=== PATIENT | male | born 1950 | race Caucasian/White ===

== ENCOUNTER 2021-01-02 02:48 | Inpatient (IN) | payer MEDICARE, OTHER ==
[~2021-01-02] VITALS: Ht 167 cm; Wt 70.0 kg
[2021-01-02] VITALS (13 sets, daily range): BP systolic 111–150; BP diastolic 55–83
[2021-01-02] MEDS ORDERED: ACETAMINOPHEN 325 MG TABLET PO PRN (05:15)
[2021-01-02] MEDS: inSUlin ASPART (NovoLOG) 1 UNIT/0.01 ML (CHARGE PER UNIT) SC SCH ×4 (06:34→20:48)
[2021-01-02 07:22] LABS: BASOPHILS % (AUTO) 0 % (0-10); EOSINOPHILS % (AUTO) 0 % (0-10); HEMATOCRIT 34 % (40-54); HEMOGLOBIN 11.8 g/dL (13.3-17.7); LYMPHOCYTES # (AUTO) 0.7 10^3/uL (1.0-4.0); LYMPHOCYTES % (AUTO) 17 % (12-44); MEAN CORPUSCULAR HEMOGLOBIN 29 pg (25-34); MEAN CORPUSCULAR HGB CONC 34 g/dL (32-36); MEAN CORPUSCULAR VOLUME 85 fL (80-99); MEAN PLATELET VOLUME 8.9 fL (9.0-12.2); MONOCYTES # (AUTO) 0.2 10^3/uL (0.0-1.0); MONOCYTES % (AUTO) 4 % (0-12); NEUTROPHILS # (AUTO) 3.2 10^3/uL (1.8-7.8); NEUTROPHILS % (AUTO) 78 % (42-75); PLATELET COUNT 206 10^3/uL (130-400)
[2021-01-02 07:34] LABS: ALBUMIN 3.2 GM/DL (3.2-4.5); POTASSIUM 3.2 MMOL/L (3.6-5.0)
[2021-01-02 07:35] LABS: CALCIUM 8.2 MG/DL (8.5-10.1)
[2021-01-02 07:36] LABS: TOTAL PROTEIN 6.3 GM/DL (6.4-8.2)
[2021-01-02 07:38] LABS: BILIRUBIN,TOTAL 0.8 MG/DL (0.1-1.0)
[2021-01-02 07:40] LABS: CREATININE SERUM 0.72 MG/DL (0.60-1.30)
[2021-01-02] MEDS: ENOXAPARIN 40 MG/0.4 ML (LOVENOX) SYR SC SCH (08:04)
[2021-01-02] MEDS: meTOprolol SUCCINATE 100 MG (TOPROL XL) TAB PO SCH ×2 (08:04→20:16)
[2021-01-02] MEDS: ASPIRIN 81 MG CHEW (CHILDREN'S ASA) PO SCH (08:04)
--- NOTE | 2021-01-02 09:13 | History & Physical-Hospitalist ---
History of Present Illness HPI/Chief Complaint Pt is a 70yoCM with a PMH of HTN and NIDDMII who presented to the ER due to weakness. He was not very forthcoming with his answer so history is somewhat limited by that. He states that he was diagnosed with COVID on 12/30. He is unvaccinated against COVID. He believes his symptoms started then as well but was unable to tell me what symptoms he had other than "COVID symptoms." He denied Cough or SOB though was coughing in the room while I was there. He denied nausea, vomiting, diarrhea, loss of taste or smell, or chest pain. He presented to the ER because he was weak and having falls. He was incidentally found to have an elevated troponin at 1.27 at [facility] in [place]. He was transferr ed here for further management. Source: patient Date Seen 01/02/21 Time Seen by a Provider: 09:06 Attending Physician Raoul Gould MD PCP Unknown Referring Physician Date of Admission Jan 02, 2021 at 04:30 Home Medications & Allergies Home Medications Reviewed patient Home Medication Reconciliation performed by pharmacy medication reconciliations substation maintenance technician and/or nursing. Patients Allergies have been reviewed. Allergies Allergies Coded Allergies No Known Drug Allergies (Unverified01/02/21) Past Tnaucyf-Ajqvfy-Fwmnsu Hx Current Status Communicates: Verbally Primary Language: Irish Preferred Spoken Language: Irish Is interpretation needed?: No Review of Systems Constitutional: No chills, No fever; malaise, weakness EENTM: no symptoms reported Respiratory: see HPI Cardiovascular: No chest pain, No edema, No Hx of Intervention, No palpitations Gastrointestinal: No abdominal pain, No constipation, No diarrhea, No loss of appetite, No nausea, No vomiting Genitourinary: no symptoms reported Musculoskeletal: no symptoms reported Skin: no symptoms reported Psychiatric/Neurological: No Symptoms Reported Physical Exam Physical Exam Vital Signs Vital Signs - First Documented 01/02/21 01/03/21 04:43 08:00 Temp 36.9 Pulse 85 Resp 24 B/P (MAP) 148/80 (102) Pulse Ox 96 O2 Delivery Nasal Cannula O2 Flow Rate 2.00 FiO2 65 Capillary Refill : Height, Weight, BMI Height: '" Weight: lbs. oz. kg; 25.09 BMI Method: General Appearance: No Apparent Distress, WD/WN HEENT: PERRL/EOMI, Moist Mucous Membranes; No Scleral Icterus (L), No Scleral Icterus (R) Neck: Normal Inspection, Supple Respiratory: Lungs Clear, No Respiratory Distress Cardiovascular: Regular Rate, Rhythm, No Murmur Gastrointestinal: Normal Bowel Sounds, Non Tender, Soft Extremity: Normal Capillary Refill, No Calf Tenderness, No Pedal Edema Neurologic/Psychiatric: Alert, Oriented x3, Normal Mood/Affect Skin: Normal Color, Warm/Dry Results Results/Procedures Labs Laboratory Tests 01/04/21 03:10 01/05/21 03:47 Patient resulted labs reviewed. Assessment/Plan Admission Diagnosis Acute hypoxic respiratory failure due to COVID19 NSTEMI Admission Status: Inpatient Order (span 2 midnights) Reason for Inpatient Admission: see below Assessment and Plan Acute hypoxic respiratory failure due to COVID19 On day 4 of symptoms Hypoxic on 3lpm Start remdesivir Start decadron MAT protocol IS Lovenox Will get CXR and procal NSTEMI HTN Cardiology consulted, appreciate recs Troponin 1.27 at [place] and 0.763 here this morning NIDDMII Did not disclose this diagnosis but on glimepiride at home and previously metforming SSI DVT ppx: Lovenox Diagnosis/Problems Diagnosis/Problems (1) Acute respiratory failure (2) COVID-19 (3) Essential (primary) hypertension (4) Non-insulin dependent type 2 diabetes mellitus (5) NSTEMI (non-ST elevated myocardial infarction) WILIAM AVELAR MD Jan 02, 2021 09:13
[2021-01-02] MEDS ORDERED: REMDESIVIR INJ 200 MG in NS (IVPB) 210 ML IV ONE (09:15)
--- NOTE | 2021-01-02 10:30 | Diagnostic Imaging Report ---
INDICATION: Hypoxia and Covid 19 positive. TIME OF EXAM: 9:43 AM. COMPARISON: No prior studies are available for comparison. FINDINGS: The heart size is normal. There appears to be some mild infiltrate in the left perihilar region. The right lung appears fairly clear. There is no effusion or pneumothorax. IMPRESSION: Mild left perihilar pneumonia. The report was faxed to Infection Control by [email or web address]@10:29 AM. Dictated by: Dictated on workstation # [id number]
[2021-01-02] MEDS: dexAMETHasone 6 MG TAB (DECADRON) PO SCH (10:43)
[2021-01-02] MEDS ORDERED: METO100T12 PO (10:48)
[2021-01-02] MEDS ORDERED: GLIM4TAB5 PO (10:48)
[2021-01-02] MEDS ORDERED: ASCO500T17 PO (10:48)
--- NOTE | 2021-01-02 10:58 | Consultation-Cardiology ---
HPI-Cardiology Cardiology Consultation Date of Consultation 01/02/21 Date of Admission Time Seen by Provider: 09:06 Indication: Elevated troponin HPI Patient is a 70 y/o male with history of HTN, DM. Diagnosed with COVID on 12/30/20. Reports fatigue and fever for the past 3-4 days, c/o increased fatigue, denies any cough of shortness of breath, although noted to have cough while i nterviewing patient. Workup done at [facility] showed elevated troponin of 1. Denies any chest pain, dizziness or lightheadedness. Denies any history of CAD. Home Medications & Allergies Allergies: Coded Allergies: No Known Drug Allergies (Unverified , 01/02/21) Home Medication List Reviewed: Yes KFT-Fltutm-Zoyade Hx Past Medical History Discussed below Family Medical History Family Medical Hx Noncontributory Review of Systems-General Review of Systems Constitutional: see HPI; No chills, No fever; malaise, weakness EENTM: see HPI, no symptoms reported Respiratory: see HPI, dyspnea on exertion, short of breath Cardiovascular: see HPI; No chest pain, No edema, No Hx of Intervention, No palpitations Gastrointestinal: no symptoms reported, see HPI; No abdominal pain, No constipation, No diarrhea, No loss of appetite, No nausea, No vomiting Genitourinary: no symptoms reported, see HPI Musculoskeletal: no symptoms reported, see HPI Skin: no symptoms reported, see HPI Psychiatric/Neurological: No Symptoms Reported, See HPI Reviewed Test Results Reviewed Test Results Lab Laboratory Tests 01/02/21 06:15: Glucometer 146H 01/02/21 07:03: White Blood Count 4.0L, Red Blood Count 4.03L, Hemoglobin 11.8L, Hematocrit 34L, Mean Corpuscular Volume 85, Mean Corpuscular Hemoglobin 29, Mean Corpuscular Hemoglobin Concent 34, Red Cell Distribution Width 12.4, Platelet Count 206, Mean Platelet Volume 8.9L, Immature Granulocyte % (Auto) 0, Neutrophils (%) (Auto) 78H, Lymphocytes (%) (Auto) 17, Monocytes (%) (Auto) 4, Eosinophils (%) (Auto) 0, Basophils (%) (Auto) 0, Neutrophils # (Auto) 3.2, Lymphocytes # (Auto) 0.7L, Monocytes # (Auto) 0.2, Eosinophils # (Auto) 0.0, Basophils # (Auto) 0.0, Immature Granulocyte # (Auto) 0.0, Sodium Level 136, Potassium Level 3.2L, Chloride Level 96L, Carbon Dioxide Level 27, Anion Gap 13, Blood Urea Nitrogen 16, Creatinine 0.72, Estimat Glomerular Filtration Rate 107, BUN/Creatinine Ratio 22, Glucose Level 141H, Calcium Level 8.2L, Corrected Calcium 8.8, Total Bilirubin 0.8, Aspartate Amino Transf (AST/SGOT) 38H, Alanine Aminotransferase (ALT/SGPT) 22, Alkaline Phosphatase 123, Troponin I 0.763*H, B-Type Natriuretic Peptide 174.1H, Total Protein 6.3L, Albumin 3.2, Procalcitonin 0.12H 01/02/21 10:12: Glucometer 151H ECG Impression ECG Initial ECG Rhythm: Normal Sinus Physical Exam Physical Exam Vital Signs Vital Signs - First Documented 01/02/21 04:43 Temp 36.9 Pulse 85 Resp 24 B/P (MAP) 148/80 (102) Pulse Ox 96 O2 Delivery Nasal Cannula O2 Flow Rate 2.00 Capillary Refill : Height, Weight, BMI Height: '" Weight: lbs. oz. kg; 25.09 BMI Method: General Appearance: No Apparent Distress, WD/WN HEENT: PERRL/EOMI, Moist Mucous Membranes; No Scleral Icterus (L), No Scleral Icterus (R) Neck: Normal Inspection, Supple Respiratory: Lungs Clear, No Respiratory Distress Cardiovascular: Regular Rate, Rhythm, No Murmur Gastrointestinal: Normal Bowel Sounds, Non Tender, Soft Extremity: Normal Capillary Refill, No Calf Tenderness, No Pedal Edema Neurologic/Psychiatric: Alert, Oriented x3, Normal Mood/Affect Skin: Normal Color, Warm/Dry A/P-Cardiology Admission Diagnosis COVID-19 Acute respiratory failure Elevated troponin HTN DM Assessment/Plan Acute respiratory failure d/t COVID 19, currently on O2 supplement NSTEMI, likely type II d/t hypoxemia, EKG showing no acute ST changes. Initial troponin done at [facility], repeat troponin 0.7. Denies any chest pain, will continue to monitor. HTN, restarted home blood pressure medication, continue to monitor. DM, management per medical services. Thank you for allowing us to participate in the management of Mr. Mejias. This is Ashlie Bowen PA-C, as a scribe for Dr. Astorga. Patient was seen and evaluated, management plan discussed, I reviewed the note and made correction using italic font To limit the exposure to COVID-19 and spreading of COVID-19, patient was seen with Ashlie and findings were relayed to me. Patient was admitted with generalized weakness and loss of energy, denied any chest pain, no acute EKG changes, had mild elevation in troponin Probably type II myocardial infarction Started on aspirin and Lovenox Monitor trending EKG was done today and did not show any acute abnormality suggestive of ischemia Patient has multiple risk factors including hypertension, hyperlipidemia and diabetes mellitus. We will continue monitoring closely ASHLIE GALINDO Jan 02, 2021 10:58 GIOVANNI ASTORGA MD Jan 02, 2021 15:40
--- OUTSIDE RECORDS SUMMARY | 2021-01-02 18:57 | XMS REPORT ---
Author Carlos Marti [facility] Address [address] [place], [place] [address] Care Team Providers Care Floor Layer Tile Name Role Phone Rupal Sneed PCP Rupal Sneed PreferredProvider Allergies and Adverse Reactions Name Reaction Notes No known allergies Plan of Treatment Not available. Medications Active Name Start Date Estimated Completion Date SIG Co mments Alcohol Prep Pads topical pads, medicated 07/19/2020 024 use twice daily prior to checking finger blood glucose metoprolol tartrate 100 mg tablet 11/13/2020 11/08/2021 TAKE 1 TABLET BY MOUTH DAILY glimepiride 4 mg tablet 12/05/2020 04/04/2021 ... TAKE 1 TABLET BY MOUTH DAILY ... Name Start Date Expiration Date SIG Comments sildenafil 25 mg oral tablet 01/23/2020 05/22/2020 gideon e 1 to 4 tabs by oral route once daily as needed approximately 1 hour before sexual activity metformin 500 mg oral tablet extended release 24 hr 07/19/2020 11/16/2020 take 1 tablet (500 mg) by oral route once daily with breakfast Problem List Description Status Onset Hypertension Active Essential hypertension Active 07/18/2020 Erectile dysfunction Active 07/18/2020 Right carpal tunnel syndrome Active 07/18/2020 Osteoarthritis Active 07/18/2020 Macular degeneration Active 07/18/2020 Peripheral neuropathy Active 07/18/2020 Diabetes mellitus type II, controlled, with no complications Active 07/19/2020 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 Visual disturbance Active 11/07/2020 Vital Signs Date Time BP-Sys(mm[Hg] BP-Chika(mm[Hg]) HR(bpm) RR(rpm) Temp WT HT HC BMI BSA BMI Percentile O2 Sat(%) 10/25/2020 9:17:00 AM 130 mm[Hg] 90 mm[Hg] 65 {beats}/min 18 rpm 97.9 F 159 lbs 66 in 25.663 kg/m2 1.8326 m2 98 % 08/10/2020 8:51:00 AM 122 mm[Hg] 70 mm[Hg] 64 {beats}/min 18 rpm 97.2 F 156.312 lbs 66 in 25.23 kg/m2 1.82 m2 99 % 07/19/2020 9:00:00 AM 148 mm[Hg] 78 mm[Hg] 66 {beats}/min 18 rpm 97.7 F 153 lbs 66 in 24.6946 kg/m2 1.7977 m2 98 % 07/17/2020 9:23:00 AM 160 mm[Hg] 80 mm[Hg] 71 {beats}/min 18 rpm 97.7 F 153 lbs 66 in 24.69 kg/m2 1.80 m2 98 % 01/23/2020 11:15:00 AM 120 mm[Hg] 72 mm[Hg] 73 {beats}/min 18 rpm 98.1 F 156.312 lbs 66 in 25.2292 kg/m2 1.8171 m2 97 % Social History Name Description Comments Tobacco Never smoker 07/17/2020 - 2019 - History of Procedures Date Ordered Description Order Status 02/01/2020 12:00 AM NRV CNDJ TEST 13/> STUDIES Reviewed 02/01/2020 12:00 AM MUSC TEST DONE W/N TEST COMP Reviewed 07/17/2020 12:00 AM COMPLETE CBC W/AUTO DIFF WBC Reviewed 07/17/2020 12:00 AM COMPREHEN METABOLIC PANEL Reviewed 07/17/2020 12:00 AM LIPID PANEL Reviewed 07/17/2020 12:00 AM GLYCOSYLATED HEMOGLOBIN TEST Reviewed 07/17/2020 12:00 AM PSA (Screening) Reviewed 07/17/2020 12:00 AM URINALYSIS AUTO W/SCOPE Reviewed 07/17/2020 12:00 AM COLLECTION VENOUS BLOOD VENIPUNCTURE Rev iewed 07/18/2020 12:00 AM Foot examination performed ( includes examination through visual inspection, sensory exam with monofilament, and pulse exam - report when all of the 3 components are completed) Reviewed 07/18/2020 8:46 AM SCREEN DEPRESSION PERFORMED Reviewed 07/18/2020 8:46 AM FALL RISK ASSESSMENT DOCD Reviewed 07/19/2020 10:26 AM ASSAY GLUCOSE BLOOD QUANT Reviewed 07/19/2020 10:26 AM GLUCOSE BLOOD TEST Reviewed 07/20/2020 12:00 AM Diabetic Education Consult Reviewed 08/10/2020 12:00 AM COMPREHEN METABOLIC PANEL Reviewed 08/10/2020 12:00 AM COLLECTION VENOUS BLOOD VENIPUNCTURE Rev iewed 10/25/2020 12:00 AM COLLECTION VENOUS BLOOD VENIPUNCTURE Rev iewed 10/25/2020 12:00 AM COMPREHEN METABOLIC PANEL Reviewed 10/25/2020 12:00 AM GLYCOSYLATED HEMOGLOBIN TEST Reviewed Results Summary Date and Description Results 07/17/2020 10:17 AM WBC 5.8 RBC 5.00 HGB 14.90 g /dLHCT 42.30 %MCV 85.0 fLMCH 29.80 pgMCHC 35.20 g/dLRDW SD 36 %RDW CV 11.90 %MPV 10.30 fLPLT 213 x10E3/uLNRBC# 0.00 NRBC% 0.0 %NEUT 63.6 %LYMP 26.6 %MONO 6.0 %EOS 2.6 %BASO 1.0 #NEUT 3.69 #LYMP 1.54 #MONO 0.35 #EOS 0.15 #BASO 0.06 MANUAL DIFF NOT IND COLOR Light-Yellow CLARITY Clear SPEC GRAV >1.030 pH 6.0 PROTEIN Negative GLUCOSE >1000 KETONE Negative BILIRUBIN Negative BLOOD Negative NITRITE Negative LEUK SCREEN Negative RBC/HPF 0-3 WBC/HPF None Seen BACTERIA/HPF None Seen SQUAMOUS EPI/LPF None Seen CULT SET UP? NO PSA TOTAL 0.750 ng/mLTRIGLYCERIDES 203 CHOLESTEROL 215.0 mg/dLHDL 50 TOT CHOL/HDL 4.3 LDL (CALC) 124 HGB A1C 11.50 %Est Avg Glucose 283.4 GLUCOSE 426 SODIUM 132 POTASSIUM 4.6 CHLORIDE 93.0 mmol/LCO2 29 BUN 17.0 mg/dLCREATININE 0.60 mg/dLSGOT/AST 25 SGPT/ALT 21 ALK PHOS 216 TOTAL PROTEIN 7.5 ALBUMIN 4.4 TOTAL BILI 0.6 CALCIUM 9.80 mg/dLAGE 70 GFR NonAA 132 GFR AA 160 eGFR 132 mL/min/1.73meGFR AA* >60 mL/min/1.73m 07/18/2020 8:46 AM During the past month, have you been feeling depressed? No During the past month, have you lost interest in usual activity? No Falls in last 6 months? No Unsteady or worry about falling? No Fall Risk Assessment Not At Risk 07/19/2020 10:26 AM Glucose SerPl-mCnc 236.0 mg/ dL 08/10/2020 9:25 AM GLUCOSE 158 SODIUM 136 POTAS SIUM 4.0 CHLORIDE 102.0 mmol/LCO2 28 BUN 10.0 mg/dLCREATININE 0.60 mg/dLSGOT/AST 22 SGPT/ALT 17 ALK PHOS 122 TOTAL PROTEIN 6.7 ALBUMIN 3.8 TOTAL BILI 0.4 CALCIUM 9.0 mg/dLAGE 70 GFR NonAA 132 GFR AA 160 eGFR 132 mL/min/1.73meGFR AA* >60 mL/min/1.73m 10/25/2020 10:34 AM GLUCOSE 177 SODIUM 135 POTAS SIUM 4.1 CHLORIDE 101.0 mmol/LCO2 27 BUN 16.0 mg/dLCREATININE 0.70 mg/dLSGOT/AST 25 SGPT/ALT 21 ALK PHOS 161 TOTAL PROTEIN 7.1 ALBUMIN 4.2 TOTAL BILI 0.4 CALCIUM 9.30 mg/dLAGE 70 GFR NonAA 111 GFR AA 135 eGFR 111 mL/min/1.73meGFR AA* >60 mL/min/1.73mHGB A1C 7.0 %Est Avg Glucose 154.2 History Of Immunizations Not available. 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/07/2020 Visual disturbance 11/07/2020 Moderate Right Finger numbness Jan 23 2020 11:20AM Hypertension Jan 23 2020 11:20AM Paresthesia of finger Jan 23 2020 11:20AM Erectile dysfunction Jan 23 2020 11:20AM Carpal tunnel syndrome of right wrist Sep 2019 8:32AM Ulnar neuropathy at elbow of right upper extremity Sep 01 12 20 8:32AM Essential hypertension Jul 17 2020 9:51AM Elevated glucose level Feb 2020 9:51AM Mixed hyperlipidemia Feb 2020 9:51AM Fatigue b 2020 9:51AM Dizziness b 2020 9:51AM Prostate cancer screening b 2020 9:51AM Urinary frequency Feb 2020 9:51AM Essential hypertension Feb 2020 9:28AM Peripheral neuropathy Feb 2020 9:28AM Macular degeneration Feb 2020 9:28AM Osteoarthritis b 2020 9:28AM Erectile dysfunction b 2020 9:28AM Right carpal tunnel syndrome Feb 2020 9:28AM Diabetes mellitus type II, controlled, with no complic ations b 2020 9:03AM Essential hypertension b 2020 9:03AM Macular degeneration b 2020 9:03AM Peripheral neuropathy b 2020 9:03AM Diabetes mellitus type II, controlled, with no complic ations Aug 10 2020 8:54AM Essential hypertension Aug 10 2020 8:54AM Peripheral neuropathy Aug 10 2020 8:54AM Diabetes mellitus type II, controlled, with no complic ations Oct 25 2020 10:27AM Essential hypertension Oct 25 2020 10:27AM Visual disturbance Oct 25 2020 9:20AM Diabetes mellitus type II, controlled, with no complic ations Oct 25 2020 9:20AM Essential hypertension Oct 25 2020 9:20AM Macular degeneration Oct 25 2020 9:20AM Victor Hugo Bonnet syndrome Oct 25 2020 9:20AM Payers Insurance Name Company Name Plan Name Plan Number Policy Number Steven cy Group Number Start Date [facility] [id number] AARP - Medicare Complete 9 [id number] N/A Government Personnel [employer] [id number] N/A Medicare Part B Medicare Of [place] [id number] N/A Medicare RHC Medicare RHC [id number] N/ A Medicare Part A Medicare - Lab/Xray [id number] N/A History of Encounters Visit Date Visit Type Provider 10/25/2020 Office visit Rupal Sneed APRN 08/10/2020 Office visit Rupal Sneed APRN 07/19/2020 Office visit Rupal Sneed [employer] 07/17/2020 Office visit Rupal Sneed [employer] 01/31/2020 Procedures Sebastián Vaughan DO 01/23/2020 Office visit Rupal Sneed [employer]
--- OUTSIDE RECORDS SUMMARY | 2021-01-02 18:57 | XMS REPORT ---
Author Carlos Marti [facility] Address [address] [place], [place] [address] Care Team Providers Care Glass Handler Name Role Phone Rupal Sneed PCP Rupal Sneed PreferredProvider Allergies and Adverse Reactions Name Reaction Notes No known allergies Plan of Treatment Not available. Medications Active Name Start Date Estimated Completion Date SIG Co mments metoprolol tartrate 100 mg oral tablet take 1 tablet (100 mg) by oral route once daily with a meal metformin 500 mg oral tablet extended release 24 hr 07/19/2020 11/16/2020 take 1 tablet (500 mg) by oral route once daily with breakfast glimepiride 4 mg oral tablet 07/19/2020 11/16/2020 gideon e 1 tablet (4 mg) by oral route once daily for 30 days Alcohol Prep Pads topical pads, medicated 07/19/2020 024 use twice daily prior to checking finger blood glucose Name Start Date Expiration Date SIG Comments sildenafil 25 mg oral tablet 01/23/2020 05/22/2020 gideon e 1 to 4 tabs by oral route once daily as needed approximately 1 hour before sexual activity Problem List Description Status Onset Hypertension Active [...] iewed 10/25/2020 12:00 AM COMPREHEN METABOLIC PANEL Returned 10/25/2020 12:00 AM GLYCOSYLATED HEMOGLOBIN TEST Returned Results Summary Date and Description Results 07/17/2020 [...] 160 eGFR 132 mL/min/1.73meGFR AA* >60 mL/min/1.73m History Of Immunizations Not available. History of [...] Sep 01 12 20 8:32AM Essential hypertension b 2020 9:51AM Elevated glucose level b 2020 9:51AM Mixed hyperlipidemia b 2020 9:51AM Fatigue b 2020 9:51AM Dizziness b 2020 9:51AM Prostate cancer screening b 2020 9:51AM Urinary frequency b 2020 9:51AM Essential hypertension b 2020 9:28AM Peripheral neuropathy b 2020 9:28AM Macular degeneration b 2020 9:28AM Osteoarthritis b 2020 9:28AM Erectile dysfunction b 2020 9:28AM Right carpal tunnel syndrome Jul 17 2020 9:28AM Diabetes mellitus type II, controlled, with no complic ations Jul 19 2020 9:03AM Essential hypertension Jul 19 2020 9:03AM Macular degeneration Jul 19 2020 9:03AM Peripheral neuropathy Jul 19 2020 9:03AM Diabetes mellitus type II, controlled, [...] Number Steven cy Group Number Start Date [facility] [id number] AARP - Medicare Complete 9 [id number] N/A Government Personnel [employer] [id number] N/A Medicare Part B Medicare Of [place] [id number] N/A Medicare RHC Medicare RHC [id number] N/ A Medicare Part A Medicare - Lab/Xray [id number] N/A History of Encounters Visit Date Visit Type Provider 10/25/2020 Office visit Rupal Sneed APRN 08/10/2020 Office visit Rupal Sneed APRN 07/19/2020 Office visit Rupal Sneed APRN 07/17/2020 Office visit Rupal Sneed APRN 01/31/2020 Procedures Sebastián Clement DO 01/23/2020 Office visit Rupal Sneed APRN
[2021-01-02] MEDS: RT-ALBUTEROL HFA 8.5 GM INHALER IH SCH (21:41)
[2021-01-03 03:47] VITALS: BP 115/62
[2021-01-03 04:51] LABS: HEMATOCRIT 35 % (40-54); HEMOGLOBIN 11.8 g/dL (13.3-17.7); MEAN CORPUSCULAR HEMOGLOBIN 29 pg (25-34); MEAN CORPUSCULAR HGB CONC 34 g/dL (32-36); MEAN CORPUSCULAR VOLUME 85 fL (80-99); MEAN PLATELET VOLUME 9.3 fL (9.0-12.2); PLATELET COUNT 221 10^3/uL (130-400); WHITE BLOOD COUNT 4.1 10^3/uL (4.3-11.0)
[2021-01-03 05:04] LABS: ALBUMIN 3.1 GM/DL (3.2-4.5)
[2021-01-03 05:05] LABS: POTASSIUM 3.5 MMOL/L (3.6-5.0)
[2021-01-03 05:06] LABS: CALCIUM 8.3 MG/DL (8.5-10.1)
[2021-01-03 05:07] LABS: TOTAL PROTEIN 6.2 GM/DL (6.4-8.2)
[2021-01-03 05:09] LABS: BILIRUBIN,TOTAL 0.6 MG/DL (0.1-1.0)
[2021-01-03 05:10] LABS: CREATININE SERUM 0.76 MG/DL (0.60-1.30)
[2021-01-03] MEDS: inSUlin ASPART (NovoLOG) 1 UNIT/0.01 ML (CHARGE PER UNIT) SC SCH ×4 (05:34→21:36)
[2021-01-03] MEDS: dexAMETHasone 6 MG TAB (DECADRON) PO SCH (05:34)
[2021-01-03] MEDS: RT-ALBUTEROL HFA 8.5 GM INHALER IH SCH ×2 (07:45→21:24)
[2021-01-03 07:56] VITALS: BP 124/71
--- NOTE | 2021-01-03 09:12 | Progress Note - Hospitalist ---
Subjective HPI/CC On Admission Date Seen by Provider: Jan 03, 2021 Time Seen by Provider: 09:01 Pt is a 70yoCM with a PMH of HTN and NIDDMII who presented to the ER due to weakness. He was not very forthcoming with his answer so history is somewhat limited by that. He states that he was diagnosed with COVID on 12/30. He is unvaccinated against COVID. He believes his symptoms started then as well but was unable to tell me what symptoms he had other than "COVID symptoms." He denied Cough or SOB though was coughing in the room while I was there. He denied nausea, vomiting, diarrhea, loss of taste or smell, or chest pain. He presented to the ER because he was weak and having falls. He was incidentally found to have an elevated troponin at 1.27 at [facility] in [place]. He was transferred here for further management. Subjective/Events-last exam Pt reports feeling well and denies any dyspnea. Despite this escalated to Vapotherm overnight. Objective Exam Vital Signs Vital Signs Date Time Temp Pulse Resp B/P (MAP) Pulse Ox O2 Delivery O2 Flow Rate FiO2 01/03/21 07:56 36.9 62 22 124/71 (88) 99 Vapotherm 25.00 65.00 Capillary Refill : General Appearance: No Apparent Distress, WD/WN Respiratory: No Accessory Muscle Use, Decreased Breath Sounds, Other (on Vapot herm, denies any d yspnea but when asked to take a deep breath he did not attempt and instead had very shallow respirations) Cardiovascular: Regular Rate, Rhythm, No Murmur Gastrointestinal: Normal Bowel Sounds, Soft Neurologic/Psychiatric: Alert, Oriented x3 Results/Procedures Lab Laboratory Tests 01/03/21 04:35 Patient resulted labs reviewed. Assessment/Plan Assessment and Plan Assess & Plan/Chief Complaint Acute hypoxic respiratory failure due to COVID19 Symptom onset 12/30 Worsening respiratory failure as is now on Vapotherm Discussed natural course of illness with pt and that he likely would get worse before he got better, he expressed understanding DC remdesivir, will give Actemra Decadron MAT protocol IS Lovenox Procal low- no indication for abx NSTEMI HTN Cardiology consulted, appreciate recs Troponin 1.27 at [place] and 0.763 here this morning Repeats per Dr Gauri ELISE Did not disclose this diagnosis but on glimepiride at home and previously metforming SSI BS 245 fasting today Will add Levemir- though likely from steroids DVT ppx: Lovenox Diagnosis/Problems Diagnosis/Problems (1) Acute respiratory failure (2) COVID-19 (3) Essential (primary) hypertension (4) Non-insulin dependent type 2 diabetes mellitus (5) NSTEMI (non-ST elevated myocardial infarction) WILIAM AVELAR MD Jan 03, 2021 09:12
[2021-01-03] MEDS ORDERED: REMDESIVIR INJ 100 MG in NS (IVPB) 230 ML IV SCH (09:15)
[2021-01-03] MEDS: meTOprolol SUCCINATE 100 MG (TOPROL XL) TAB PO SCH ×2 (09:23→21:36)
[2021-01-03] MEDS: ASPIRIN 81 MG CHEW (CHILDREN'S ASA) PO SCH (09:23)
[2021-01-03] MEDS: ENOXAPARIN 40 MG/0.4 ML (LOVENOX) SYR SC SCH (09:23)
--- NOTE | 2021-01-03 10:08 | Pulmonary Consultation ---
History of Present Illness History of Present Illness Date Seen by Provider: Jan 03, 2021 Time Seen by Provider: 10:00 Date of Admission Reason for Visit: Elevated troponin History of Present Illness 70yoCM with a PMH of HTN and NIDDMII who presented to the ER due to weakness. SOB nad cough were documented. He states that he was diagnosed with COVID on 12/30. He is unvaccinated against COVID. He denied nausea, vomiting, diarrhea, loss of taste or smell, or chest pain. He presented to the ER because he was weak and having falls. He was incidentally found to have an elevated troponin at 1.27 at an outside hp; pt was started on COVID protocol and admitted to the step down; he advanced to vapotherm. 88% on ra Allergies and Home Medications Allergies Coded Allergies: No Known Drug Allergies (Unverified , 01/02/21) Home Medications Ascorbic Acid 500 Mg Tablet, 500 MG PO DAILY, (Reported) Glimepiride 4 Mg Tablet, 4 MG PO DAILY, (Reported) Metoprolol Tartrate 100 Mg Tablet, 100 MG PO DAILY, (Reported) Past Medical/Social/Family Hx Patient Social History Employed/Student: retired Current Status Communicates: Verbally Primary Language: [place] Citizen Preferred Spoken Language: [place] Citizen Is interpretation needed?: No Past Medical History HTN DM Review of Systems Constitutional: see HPI Sepsis Event Evaluation Height, Weight, BMI Height: '" Weight: lbs. oz. kg; 25.09 BMI Method: Exam Exam Patient acknowledged, consented, and participated in this virtual visit which was conducted using real time audio/video Vital Signs Date Time Temp Pulse Resp B/P (MAP) Pulse Ox O2 Delivery O2 Flow Rate FiO2 01/03/21 08:00 98 Vapotherm 25.00 01/03/21 07:56 36.9 62 22 124/71 (88) 99 Vapotherm 25.00 65.00 01/03/21 07:46 90 Nasal Cannula 12.00 01/03/21 07:00 63 01/03/21 03:47 59 14 115/62 (79) 93 Nasal Cannula 7.00 01/03/21 03:24 92 High Flow N/C 9.00 01/03/21 01:00 62 01/03/21 00:00 High Flow N/C 7.00 01/02/21 23:52 36.6 62 26 119/76 (90) 94 Nasal Cannula 7.00 01/02/21 21:41 95 Nasal Cannula 3.00 01/02/21 20:34 High Flow N/C 7.00 01/02/21 20:03 36.0 61 20 137/79 (98) 95 Nasal Cannula 7.00 01/02/21 19:00 61 01/02/21 16:04 36.0 73 22 111/67 (82) 94 Nasal Cannula 7.00 01/02/21 16:00 96 High Flow N/C 7.00 01/02/21 13:25 37.9 81 93 01/02/21 12:56 82 01/02/21 12:00 93 Nasal Cannula 5.00 01/02/21 11:33 37.9 81 18 150/83 (105) 95 Nasal Cannula 5.00 I & O 01/03/21 07:00 Intake Total 1150 ml Output Total 1150 ml Balance 0 ml Height & Weight Height: '" Weight: lbs. oz. kg; 25.09 BMI Method: General Appearance: No Apparent Distress, WD/WN, Mild Distress HEENT: PERRL/EOMI, Moist Mucous Membranes; No Scleral Icterus (L), No Scleral Icterus (R) Neck: Normal Inspection, Supple Respiratory: No Accessory Muscle Use, Decreased Breath Sounds, Rhonci, Other (on Vapotherm, denies any d yspnea but when asked to take a deep breath he did not attempt and instead had very shallow respirations) Cardiovascular: Regular Rate, Rhythm, No Murmur Extremity: Normal Capillary Refill, No Calf Tenderness, No Pedal Edema Neurologic/Psychiatric: Alert, Oriented x3 Skin: Normal Color, Warm/Dry Results Lab Laboratory Tests 01/02/21 07:03 01/03/21 04:35 Assessment/Plan Assessment/Plan Acute hypoxemic resp failure in the context of COVID 19. -steroids/ lovenox/ remdesivir/ tocilizumab infusion -abg ordered -trend d dimer- consider VTE work up if ddimers are trending up. -self proning pt was visualized and examined via camera and EKO ILIJANEE SAENZ MD Jan 03, 2021 10:08
[2021-01-03] MEDS ORDERED: TOCILIZUMAB IV NR (10:30)
[2021-01-03] MEDS ORDERED: NS IV NR (10:30)
[2021-01-03 11:30] VITALS: BP 129/65
[2021-01-03 15:20] VITALS: BP 102/50
[2021-01-03 19:10] VITALS: BP 116/65
[2021-01-03 23:30] VITALS: BP_SYST 110; BP_SYST 119; BP_DIAS 57; BP_DIAS 60
[2021-01-04 03:30] LABS: POTASSIUM 3.5 MMOL/L (3.6-5.0)
[2021-01-04 03:31] LABS: CALCIUM 8.2 MG/DL (8.5-10.1)
[2021-01-04 03:34] LABS: BILIRUBIN,TOTAL 0.5 MG/DL (0.1-1.0)
[2021-01-04 03:36] LABS: CREATININE SERUM 0.71 MG/DL (0.60-1.30)
[2021-01-04 05:12] VITALS: BP 133/76
[2021-01-04] MEDS: inSUlin ASPART (NovoLOG) 1 UNIT/0.01 ML (CHARGE PER UNIT) SC SCH ×4 (06:02→21:54)
[2021-01-04] MEDS: dexAMETHasone 6 MG TAB (DECADRON) PO SCH (06:02)
[2021-01-04 07:18] VITALS: BP 127/65
--- NOTE | 2021-01-04 09:01 | Cardiology Progress Note ---
Subjective Date Seen by Provider: Jan 04, 2021 Time Seen by Provider: 09:00 Subjective/Events-last exam Patient was seen at bedside laying down comfortably, still on Vapotherm. Feeling well and asking to go home Review of Systems General: No Chills, No Night Sweats, No Fatigue, No Malaise, No Appetite, No Other HEENT: No Head Aches, No Visual Changes, No Eye Pain, No Ear Pain, No Dysphasia, No Sinus Congestion, No Post Nasal Drip, No Sore Throat, No Other Pulmonary: No Dyspnea, No Cough, No Pleuritic Chest Pain, No Other Cardiovascular: No: Chest Pain, Palpitations, Orthopnea, Paroxysmal Noc. Dyspnea, Edema, Lt Headedness, Other Objective-Cardiology Exam Last Set of Vital Signs Vital Signs 01/04/21 01/04/21 04:59 07:18 Temp 35.2 Pulse 59 Resp 22 B/P (MAP) 127/65 (85) Pulse Ox 97 O2 Delivery Vapotherm O2 Flow Rate 25.00 45.00 FiO2 45 I&O Intake and Output 01/04/21 00:00 Intake Total 1390 ml Output Total 1775 ml Balance -385 ml Intake Oral 1040 ml IV Total 350 ml Output Urine Total 1775 ml General: Alert, Oriented X3, Cooperative HEENT: Atraumatic, PERRLA Neck: Supple, No JVD, No Thyromegaly Lungs: Clear to Auscultation, Normal Air Movement Heart: Regular Rate, Normal S1, Normal S2, No Murmurs Abdomen: Normal Bowel Sounds, Soft, No Tenderness, No Hepatosplenomegaly, No Masses Extremities: No Clubbing, No Cyanosis, No Edema, Normal Pulses, No Tenderness/Swelling Skin: No Rashes, No Breakdown, No Significant Lesion Neuro: Normal Gait, Normal Speech, Strength at 5/5 X4 Ext, Normal Tone, Sensation Intact Psych/Mental Status: Mental Status NL, Mood NL Results Lab Laboratory Tests 01/04/21 03:10 A/P-Cardiology Admission Diagnosis COVID-19 Acute respiratory failure Elevated troponin HTN DM Assessment/Plan Acute respiratory failure d/t COVID 19, maintained on Vapotherm 45% with oxygen saturation in the upper 80s. Managed by primary care team NSTEMI, likely type II d/t hypoxemia, EKG showing no acute ST changes. I yves scussed with him the management plan, recommended evaluation as an outpatient, possible stress testing in the future once clinically stable Hypertension, continue current medication monitor blood pressure Diabetes mellitus, managed by primary care physician GIOVANNI BURNETT MD Jan 04, 2021 09:01
[2021-01-04] MEDS: meTOprolol SUCCINATE 100 MG (TOPROL XL) TAB PO SCH ×2 (09:16→21:53)
[2021-01-04] MEDS: ASPIRIN 81 MG CHEW (CHILDREN'S ASA) PO SCH (09:16)
[2021-01-04] MEDS: ENOXAPARIN 40 MG/0.4 ML (LOVENOX) SYR SC SCH (09:16)
--- NOTE | 2021-01-04 09:20 | Pulmonary Progress Note ---
Subjective Date Seen by a Provider: Jan 04, 2021 Time Seen by a Provider: 09:16 Subjective/Events-last exam events over night: down 5l o2 Review of Systems General: Malaise Pulmonary: Dyspnea, Cough Sepsis Event Evaluation Height, Weight, BMI Height: '" Weight: lbs. oz. kg; 25.09 BMI Method: Exam Exam Patient acknowledged, consented, and participated in this virtual visit which was conducted using real time audio/video Vital Signs Date Time Temp Pulse Resp B/P (MAP) Pulse Ox O2 Delivery O2 Flow Rate FiO2 01/04/21 07:18 35.2 59 22 127/65 (85) 97 Vapotherm 25.00 45.00 01/04/21 07:00 58 01/04/21 05:12 35.5 54 20 133/76 (95) 94 Vapotherm 25.00 45.00 01/04/21 04:59 Vapotherm 25.00 45 01/04/21 01:00 60 01/04/21 00:00 Vapotherm 25.00 45 01/03/21 23:30 36.4 60 20 110/60 (77) 96 Vapotherm 25.00 45.00 01/03/21 21:25 94 Vapotherm 25.00 45 01/03/21 20:20 Vapotherm 25.00 45 01/03/21 19:10 36.4 61 20 116/65 (82) 95 Vapotherm 25.00 45.00 01/03/21 19:00 60 01/03/21 16:27 92 Vapotherm 25.00 45 01/03/21 15:20 36.6 56 18 102/50 (67) 93 Vapotherm 25.00 45.00 01/03/21 13:00 57 01/03/21 12:49 96 Vapotherm 25.00 45 01/03/21 11:30 36.2 64 18 129/65 (86) 97 Vapotherm 25.00 45.00 I & O 01/04/21 07:00 Intake Total 1290 ml Output Total 1175 ml Balance 115 ml Height & Weight Height: '" Weight: lbs. oz. kg; 25.09 BMI Method: General Appearance: No Apparent Distress, WD/WN, Mild Distress HEENT: PERRL/EOMI, Moist Mucous Membranes; No Scleral Icterus (L), No Scleral Icterus (R) Neck: Normal Inspection, Supple Respiratory: No Accessory Muscle Use, Decreased Breath Sounds (per rn ), Rhonci, Other (on Vapotherm, denies any d yspnea but when asked to take a deep breath he did not attempt and instead had very shallow respirations) Cardiovascular: Regular Rate, Rhythm, No Murmur Extremity: Normal Capillary Refill, No Calf Tenderness, No Pedal Edema Neurologic/Psychiatric: Alert, Oriented x3 Skin: Normal Color, Warm/Dry Results Lab Laboratory Tests 01/03/21 04:35 01/04/21 03:10 Assessment/Plan Assessment/Plan Acute hypoxemic resp failure in the context due to COVID PNA -abg/ d dimer -vapotherm to be continued together with self proning -dexa -lovenox -if the d dimer is trending up we will need to pursue VTE work up. JANEE Brown rn, MD Jan 04, 2021 09:20
--- NOTE | 2021-01-04 09:49 | Diagnostic Imaging Report ---
INDICATION: COVID 19 pneumonia. TIME OF EXAM: 9:26 AM Correlation is made with prior chest from 01/02/2021. Heart size normal. There are worsening bilateral pulmonary infiltrates consistent with worsening pneumonia. No effusion or pneumothorax is identified. IMPRESSION: Worsening bilateral pulmonary infiltrates since exam 2 days earlier. Dictated by: Dictated on workstation # [id number]
[2021-01-04] MEDS: RT-ALBUTEROL HFA 8.5 GM INHALER IH SCH ×2 (10:08→22:39)
--- NOTE | 2021-01-04 10:16 | Progress Note - Hospitalist ---
Subjective HPI/CC On Admission Date Seen by Provider: Jan 04, 2021 Time Seen by Provider: 10:11 Pt is a 70yoCM with a PMH of HTN and NIDDMII who presented to the ER due to weakness. He was not very forthcoming with his answer so history is somewhat limited by that. He states that he was diagnosed with COVID on 12/30. He is unvaccinated against COVID. He believes his symptoms started then as well but was unable to tell me what symptoms he had other than "COVID symptoms." He denied Cough or SOB though was coughing in the room while I was there. He denied nausea, vomiting, diarrhea, loss of taste or smell, or chest pain. He presented to the ER because he was weak and having falls. He was incidentally found to have an elevated troponin at 1.27 at [facility] in [place]. He was transferred here for further management. Subjective/Events-last exam Pt reports feeling well. He is currently on Vapotherm but asking to DC home. We discussed that he has too high of an oxygen need to go home as Vapotherm cannot be done at home. Objective Exam Vital Signs Vital Signs Date Time Temp Pulse Resp B/P (MAP) Pulse Ox O2 Delivery O2 Flow Rate FiO2 01/04/21 12:08 35.5 61 26 136/71 (92) 95 Nasal Cannula 5.00 01/04/21 09:00 45 Capillary Refill : General Appearance: No Apparent Distress, WD/WN Respiratory: No Accessory Muscle Use, Decreased Breath Sounds; No Rhonci; Other (on Vapotherm) Cardiovascular: Regular Rate, Rhythm, No Murmur Gastrointestinal: Normal Bowel Sounds, Non Tender, Soft Neurologic/Psychiatric: Alert, Oriented x3 Results/Procedures Lab Laboratory Tests 01/04/21 03:10 Patient resulted labs reviewed. Assessment/Plan Assessment and Plan Assess & Plan/Chief Complaint Acute hypoxic respiratory failure due to COVID19 Symptom onset 12/30 Remains on Vapotherm but down to 15lpm at 45% FiO2 DC remdesivir,s/p 1 dose Actemra Decadron MAT protocol IS Lovenox Procal low- no indication for abx NSTEMI HTN Cardiology consulted, appreciate recs Troponin 1.27 at [place] and 0.763 Outpatient follow up recommended by Dr Gauri ELISE Did not disclose this diagnosis but on glimepiride at home and previously metforming SSI BS 206 fasting today, improved with Levemir DVT ppx: Lovenox Diagnosis/Problems Diagnosis/Problems (1) Acute respiratory failure (2) COVID-19 (3) Essential (primary) hypertension (4) Non-insulin dependent type 2 diabetes mellitus (5) NSTEMI (non-ST elevated myocardial infarction) WILIAM AVELAR MD Jan 04, 2021 10:15
[2021-01-04 12:08] VITALS: BP 136/71
--- NOTE | 2021-01-04 14:04 | Physical Therapy Evaluation ---
PT Evaluation-General Medical Diagnosis Admission Date Jan 02, 2021 at 04:30 Medical Diagnosis: NSTEMI/Covid Onset Date: Jan 02, 2021 Therapy Diagnosis Therapy Diagnosis: debility/weakness Precautions Precautions/Isolations: Airborne Isolation, Fall Prevention Referral Physician: Claudia Reason for Referral: Evaluation/Treatment Medical History Pertinent Medical History: DM, HTN Current History ER secondary to weakness/unvaccinated and Covid + Reviewed History: Yes Social History Home: Single Level Current Living Status: Alone Entry Into Home: Stairs With Railing PT Steps Into Home: 2 Prior Prior Level of Function SCALE: Activities may be completed with or without assistive devices. 7-Pruubnohjq-jkrpwks completes the activity by him/herself with no assistance from a helper. 5-Set-up or Clean-up Assistance-helper sets up or cleans up; patient completes activity. [place] assists only prior to or following the activity. 4-Supervision or Touching Assistance-helper provides verbal cues and/or touching/steadying and/or contact guard assistance as patient completes activity. Assistance may be provided throughout the activity or intermittently. 3-Partial/Moderate Assistance-helper does LESS THAN HALF the effort. [place] lifts, holds or supports trunk or limbs, but provides less than half the effort. 2-Substantial/Maximal Assistance-helper does MORE THAN HALF the effort. [place] lifts or holds trunk or limbs and provides more than half the effort. 5-Qagspcihq-cncmlk does ALL the effort. Patient does none of the effort to complete the activity. Or, the assistance of 2 or more helpers is required for the patient to complete the activity. If activity was not attempted, code reason: 7-Patient Refused. 9-Not Applicable-not attempted and the patient did not perform the activity before the current illness, exacerbation or injury. 10-Not Attempted due to Environmental Limitations-(lack of equipment, weather restraints, etc.). 88-Not Attempted due to Medical Conditions or Safety Concerns. Bed Mobility: 6 Transfers (B,C,W/C): 6 Gait: 6 Stairs: 6 Indoor Mobility (Ambulation): Independent Stairs: Independent Prior Devices Use: None PT Evaluation-Current Subjective Patient agrees to PT. He voices he wants to go home. Objective Patient Orientation: Normal For Age Attachments: Oxygen (5L HF NC) ROM/Strength ROM Lower Extremities bilateral LE WFL Strength Lower Extremities 4/5 grossly bilateral LE Integumentary/Posture Bowel Incontinence: No Bladder Incontinence: No Posture WFL Neuromuscular (Tone, Coordination, Reflexes) grossly intact Sensory Vision: Wears Glasses Hearing: Functional Transfers Lying to Sitting/Side of Bed(Q: 6 Sit to Stand (QC): 6 Chair/Thk-kj-Zulqu Xfer(QC): 6 Gait Does the Patient Walk?: Yes Mode of Locomotion: Walk Anticipated Mode of Locomotion: Walk Walk 10 feet (QC): 6 Walk 50 ft with 2 Turns(QC): 6 Walk 150 ft (QC): 6 Distance: 250' in room Gait Assistive Device: None Comments/Gait Description slightly unsteady initially with improvement with distance Balance Sitting Static: Normal Sitting Dynamic: Normal Standing Static: Good Standing Dynamic: Good Picking up an Object (QC): 6 Assessment/Needs SAO2 remains 92% on 5L HF NC with activity. Patient currently at independent [facility] with gross motor skills and does not require skilled PT intervention. Rehab Potential: Fair PT Plan Treatment/Plan Treatment Plan: Discontinue PT, goals met Treatment Duration: Jan 04, 2021 Frequency: 1 time per week Estimated Hrs Per Day: .25 hour per day Patient and/or Family Agrees t: Yes Time/GCodes Time In: 1330 Time Out: 1343 Total Billed Treatment Time: 13 Total Billed Treatment [address] [facility] 13 min EBER AGUILAR PT Jan 04, 2021 14:04
[2021-01-04 14:39] LABS: ABG BASE EXCESS 5.6 MMOL/L (-2.5-2.5); ABG OXYGEN SATURATION 63 % (94-100); ABG PCO2 43 MMHG (35-45); ABG PH 7.45 (7.37-7.43); ABG TCO2 31.2 MMOL/L (21.0-31.0)
[2021-01-04 14:45] LABS: ABG PO2 34 MMHG (79-93); INSPIRED O2 45%; VENTILATOR NO
[2021-01-04 16:00] VITALS: BP 150/75
[2021-01-04 19:41] VITALS: BP 155/75
[2021-01-05] VITALS (7 sets, daily range): BP systolic 130–162; BP diastolic 65–88
[2021-01-05 04:44] LABS: ALBUMIN 2.9 GM/DL (3.2-4.5); BILIRUBIN,TOTAL 0.5 MG/DL (0.1-1.0); CALCIUM 8.5 MG/DL (8.5-10.1); CREATININE SERUM 0.66 MG/DL (0.60-1.30); POTASSIUM 3.4 MMOL/L (3.6-5.0); TOTAL PROTEIN 5.8 GM/DL (6.4-8.2)
[2021-01-05] MEDS: inSUlin ASPART (NovoLOG) 1 UNIT/0.01 ML (CHARGE PER UNIT) SC SCH ×4 (06:16→21:07)
[2021-01-05] MEDS: dexAMETHasone 6 MG TAB (DECADRON) PO SCH (06:16)
[2021-01-05] MEDS: RT-ALBUTEROL HFA 8.5 GM INHALER IH SCH ×2 (08:21→20:01)
[2021-01-05] MEDS: ENOXAPARIN 40 MG/0.4 ML (LOVENOX) SYR SC SCH (08:35)
[2021-01-05] MEDS: ASPIRIN 81 MG CHEW (CHILDREN'S ASA) PO SCH (08:35)
[2021-01-05] MEDS: meTOprolol SUCCINATE 100 MG (TOPROL XL) TAB PO SCH ×2 (08:35→21:05)
--- NOTE | 2021-01-05 09:40 | Progress Note - Hospitalist ---
Subjective HPI/CC On Admission Date Seen by Provider: Jan 05, 2021 Time Seen by Provider: 09:36 Pt is a 70yoCM with a PMH of HTN and NIDDMII who presented to the ER due to weakness. He was not very forthcoming with his answer so history is somewhat limited by that. He states that he was diagnosed with COVID on 12/30. He is unvaccinated against COVID. He believes his symptoms started then as well but was unable to tell me what symptoms he had other than "COVID symptoms." He denied Cough or SOB though was coughing in the room while I was there. He denied nausea, vomiting, diarrhea, loss of taste or smell, or chest pain. He presented to the ER because he was weak and having falls. He was incidentally found to have an elevated troponin at 1.27 at [facility] in [place]. He was transferred here for further management. Subjective/Events-last exam Pt reports feeling well. Breathing easily. On 5lpm and satting 97%. I turned him down to 3lpm and he remained at 95% and above throughout our entire exam. Objective Exam Vital Signs Vital Signs Date Time Temp Pulse Resp B/P (MAP) Pulse Ox O2 Delivery O2 Flow Rate FiO2 01/05/21 08:21 94 High Flow N/C 5.00 01/05/21 08:20 35.4 57 20 136/69 (91) 01/05/21 04:00 45 Capillary Refill : General Appearance: No Apparent Distress, WD/WN Respiratory: Lungs Clear, No Accessory Muscle Use Cardiovascular: Regular Rate, Rhythm, No Murmur Gastrointestinal: Normal Bowel Sounds, Non Tender, Soft Neurologic/Psychiatric: Alert, Oriented x3 Results/Procedures Lab Laboratory Tests 01/05/21 03:47 Patient resulted labs reviewed. Assessment/Plan Assessment and Plan Assess & Plan/Chief Complaint Acute hypoxic respiratory failure due to COVID19 Symptom onset 12/30 Titrated down to 3lpm, informed RN so she could monitor his continued tolerance of this s/p 1 dose Actemra Decadron MAT protocol IS Lovenox Procal low- no indication for abx Hopeful for DC home tomorrow oxygen study NSTEMI HTN Cardiology consulted, appreciate recs Troponin 1.27 at [place] and 0.763 Outpatient follow up recommended by Dr Gauri ELISE Did not disclose this diagnosis but on glimepiride at home and previously metformin SSI BS 66 fasting today, decreased Levemir Will tolerate higher daytime levels to avoid hypoglycemia DVT ppx: Lovenox Diagnosis/Problems Diagnosis/Problems (1) Acute respiratory failure (2) COVID-19 (3) Essential (primary) hypertension (4) Non-insulin dependent type 2 diabetes mellitus (5) NSTEMI (non-ST elevated myocardial infarction) WILIAM AVELAR MD Jan 05, 2021 09:40
[2021-01-05 11:31] LABS: TRIGLYCERIDES 59 MG/DL (<150); VLDL CHOLESTEROL 12 MG/DL (5-40)
[2021-01-05 11:36] LABS: CHOLESTEROL 78 MG/DL (< 200)
[2021-01-05 11:37] LABS: HDL CHOLESTEROL 24 MG/DL (40-60)
--- NOTE | 2021-01-05 11:37 | Cardiology Progress Note ---
Progress Note-Cardiology Events since last exam Date Seen by Provider: Jan 05, 2021 Time Seen by Provider: 11:32 Events since last exam We are seeing him due to probable type II NSTEMI in the setting of Covid inf ection. I did not see the patient due to his Covid status. I did speak with his nurse. The hospitalist wants to move him down to the medical floor. He has not been reporting any chest pain. There have not been any significant arrhythmias on his telemetry. Certain portions of this document may have been dictated utilizing voice recognition technology. Inherent to this technology, typographical and grammatical errors may exist. As much as I am diligent to identify and correct these mistakes, some errors may remain in the document. Vitals Last set of Vitals Signs Vital Signs 01/05/21 01/05/21 01/05/21 04:00 08:20 08:21 Temp 35.4 Pulse 57 Resp 20 B/P (MAP) 136/69 (91) Pulse Ox 94 O2 Delivery High Flow N/C O2 Flow Rate 5.00 FiO2 45 Labs Labs Laboratory Tests 01/05/21 03:47 Exam Vital Signs Vital Signs Date Time Temp Pulse Resp B/P (MAP) Pulse Ox O2 Delivery O2 Flow Rate FiO2 01/05/21 08:21 94 High Flow N/C 5.00 01/05/21 08:20 35.4 57 20 136/69 (91) 01/05/21 04:00 45 Physical Exam I did not examine the patient due to his Covid status. Labs Laboratory Tests Test 01/04/21 14:30 01/04/21 16:11 01/04/21 20:33 01/05/21 03:47 Range/Units Blood Gas Puncture Site NA Blood Gas Patient Temperature 36.0 Arterial Blood pH 7.45 H 7.37-7.43 Arterial Blood Partial Pressure CO2 43 35-45 MMHG Arterial Blood Partial Pressure O2 34 *L 79-93 MMHG Arterial Blood HCO3 30 H 23-27 MMOL/L Arterial Blood Total CO2 31.2 H 21.0-31.0 MMOL/L Arterial Blood Oxygen Saturation 63 L 94-100 % Arterial Blood Base Excess 5.6 H -2.5-2.5 MMOL/L Marty Test NA Blood Gas Ventilator Setting NO Blood Gas Inspired Oxygen 45% Glucometer 311 H 275 H 70-110 MG/DL Sodium Level 137 135-145 MMOL/L Potassium Level 3.4 L 3.6-5.0 MMOL/L Chloride Level 100 98-107 MMOL/L Carbon Dioxide Level 30 21-32 MMOL/L Anion Gap 7 5-14 MMOL/L Blood Urea Nitrogen 19 H 7-18 MG/DL Creatinine 0.66 0.60-1.30 MG/DL Estimat Glomerular Filtration Rate 119 BUN/Creatinine Ratio 29 Glucose Level 66 L 70-105 MG/DL Calcium Level 8.5 8.5-10.1 MG/DL Corrected Calcium 9.4 8.5-10.1 MG/DL Total Bilirubin 0.5 0.1-1.0 MG/DL Aspartate Amino Transf (AST/SGOT) 47 H 5-34 U/L Alanine Aminotransferase (ALT/SGPT) 31 0-55 U/L Alkaline Phosphatase 124 40-136 U/L Total Protein 5.8 L 6.4-8.2 GM/DL Albumin 2.9 L 3.2-4.5 GM/DL Test 01/05/21 10:24 Range/Units Glucometer 82 70-110 MG/DL Diagnosis/Problems Diagnosis/Problems (1) NSTEMI (non-ST elevated myocardial infarction) Assessment & Plan: This is a probable type II NSTEMI due to his acute Covid infection with supply/demand mismatch. He is not having any angina. He is on aspirin and beta-gómez. I will add a lipid panel to this morning's blood sample. He will likely need statin medication. The plan is for noninvasive imaging as an outpatient after he recovers from Covid and completes post Covid quarantine. Given that this was a probable type II NSTEMI and we are holding off on an ischemic evaluation until he recovers from the Covid infection, I will not prescribe dual antiplatelet therapy until we have an assessment for coronary ischemia. In light of his diabetes, I will also add low-dose SEAN inhibitor. Now that he is 3 days out from admission and the abnormal troponin levels with no ventricular ectopy noted on telemetry monitoring, it would not be unreasonable to transfer him to the medical floor without telemetry. (2) Essential (primary) hypertension Assessment & Plan: Blood pressure is controlled with beta-gómez. I will add low-dose SEAN inhibitor in light of the acute myocardial infarction and his diabetes. (3) Type 2 diabetes mellitus with complication Assessment & Plan: I have taken the liberty of adding an HbA1c and lipid panel to his blood sample from this morning. As above, he would likely benefit from SEAN inhibitor due to his diabetes. Likewise, he would probably benefit from st atin medication. The hospitalist is managing the diabetes. OFELIA VILLANUEVA JR, MD Jan 05, 2021 11:37
[2021-01-05] MEDS ORDERED: lisINopril 5 MG (PRINIVIL) TABLET PO NR (11:45)
[2021-01-06 04:04] VITALS: BP 139/67
[2021-01-06] MEDS: inSUlin ASPART (NovoLOG) 1 UNIT/0.01 ML (CHARGE PER UNIT) SC SCH ×2 (06:22→11:19)
[2021-01-06 06:50] LABS: ALBUMIN 2.9 GM/DL (3.2-4.5)
[2021-01-06 06:51] LABS: POTASSIUM 3.7 MMOL/L (3.6-5.0)
[2021-01-06 06:52] LABS: CALCIUM 8.3 MG/DL (8.5-10.1)
[2021-01-06 06:53] LABS: TOTAL PROTEIN 5.7 GM/DL (6.4-8.2)
[2021-01-06 06:55] LABS: BILIRUBIN,TOTAL 0.6 MG/DL (0.1-1.0)
[2021-01-06 06:57] LABS: CREATININE SERUM 0.72 MG/DL (0.60-1.30)
[2021-01-06] MEDS: RT-ALBUTEROL HFA 8.5 GM INHALER IH SCH (08:17)
[2021-01-06 08:48] VITALS: BP 169/67
[2021-01-06] MEDS: ENOXAPARIN 40 MG/0.4 ML (LOVENOX) SYR SC SCH (08:54)
[2021-01-06] MEDS: ASPIRIN 81 MG CHEW (CHILDREN'S ASA) PO SCH (08:54)
[2021-01-06] MEDS: meTOprolol SUCCINATE 100 MG (TOPROL XL) TAB PO SCH (08:54)
[2021-01-06] MEDS: dexAMETHasone 6 MG TAB (DECADRON) PO SCH (08:54)
[2021-01-06] MEDS ORDERED: lisINopril 5 MG (PRINIVIL) TABLET PO SCH (09:00)
[2021-01-06] MEDS ORDERED: MTP100TCR PO (10:11)
[2021-01-06] MEDS ORDERED: ASPI81TA64 PO (10:11)
[2021-01-06] MEDS ORDERED: LISI-729 PO (10:11)
--- NOTE | 2021-01-06 10:12 | Discharge Inst-Simple/Standard ---
Discharge Inst-Standard Patient Instructions/Follow Up Plan of Care/Instructions/FU: Please continue to take your medications as written. Please follow up with your primary care doctor to follow up this hospital stay. Please follow up with Dr Astorga on 01/31 Activity as Tolerated: Yes Discharge Diet: Cardiac Diet Return to The Hospital For: Chest pain, shortness of breath, confusion, weakness, fever, if you feel you are getting worse. WILIAM AVELAR MD Jan 06, 2021 10:12
[2021-01-06 11:15] VITALS: BP 155/73
--- NOTE | 2021-01-06 11:46 | Cardiology Progress Note ---
Progress Note-Cardiology Events since last exam Date Seen by Provider: Jan 06, 2021 Time Seen by Provider: 11:43 Events since last exam We are following him due to probable type II NSTEMI. I did not see the patient due to his Covid status. He has been transferred to the regular medical floor. I spoke to his nurse of the day. The plan is for possible discharged home today. There have not been any acute cardiac concerns overnight. Certain portions of this document may have been dictated utilizing voice re cognition technology. Inherent to this technology, typographical and grammatical errors may exist. As much as I am diligent to identify and correct these mistakes, some errors may remain in the document. Vitals Last set of Vitals Signs Vital Signs 01/05/21 01/06/21 04:00 11:15 Temp 35.7 Pulse 53 Resp 24 B/P (MAP) 155/73 (100) Pulse Ox 97 O2 Delivery High Flow N/C O2 Flow Rate 3.00 FiO2 45 Labs Labs Laboratory Tests 01/06/21 06:20 Exam Vital Signs Vital Signs Date Time Temp Pulse Resp B/P (MAP) Pulse Ox O2 Delivery O2 Flow Rate FiO2 01/06/21 11:15 35.7 53 24 155/73 (100) 97 High Flow N/C 3.00 01/05/21 04:00 45 Physical Exam I did not examine the patient due to his Covid status. Labs Laboratory Tests Test 01/05/21 15:58 01/05/21 20:16 01/06/21 06:19 01/06/21 06:20 Range/Units Glucometer 190 H 227 H 130 H 70-110 MG/DL Sodium Level 141 135-145 MMOL/L Potassium Level 3.7 3.6-5.0 MMOL/L Chloride Level 101 98-107 MMOL/L Carbon Dioxide Level 29 21-32 MMOL/L Anion Gap 11 5-14 MMOL/L Blood Urea Nitrogen 19 H 7-18 MG/DL Creatinine 0.72 0.60-1.30 MG/DL Estimat Glomerular Filtration Rate 107 BUN/Creatinine Ratio 26 Glucose Level 136 H 70-105 MG/DL Calcium Level 8.3 L 8.5-10.1 MG/DL Corrected Calcium 9.2 8.5-10.1 MG/DL Total Bilirubin 0.6 0.1-1.0 MG/DL Aspartate Amino Transf (AST/SGOT) 64 H 5-34 U/L Alanine Aminotransferase (ALT/SGPT) 48 0-55 U/L Alkaline Phosphatase 130 40-136 U/L Total Protein 5.7 L 6.4-8.2 GM/DL Albumin 2.9 L 3.2-4.5 GM/DL Test 01/06/21 11:15 Range/Units Glucometer 107 70-110 MG/DL Diagnosis/Problems Diagnosis/Problems (1) NSTEMI (non-ST elevated myocardial infarction) Assessment & Plan: This is a probable type II NSTEMI due to his acute Covid infection with supply/demand mismatch. He is not having any angina. He is on aspirin and beta-gómez. His LDL level actually looks quite good on this admission despite not taking a statin. However, his cholesterol level could be low related to the acute infection. The plan is for noninvasive imaging as an outpatient after he recovers from Covid and completes post Covid quarantine. Given that this was a probable type II NSTEMI and we are holding off on an ischemic evaluation until he recovers from the Covid infection, I will not prescribe dual antiplatelet therapy until we have an assessment for coronary ischemia. In light of his diabetes, I have added low-dose SEAN inhibitor. (2) Essential (primary) hypertension Assessment & Plan: Blood pressure is intermittently elevated. I just started him on SEAN inhibitor in addition to the beta-gómez. We will continue to monitor the blood pressures. If they remain elevated, we may need to increase the SEAN inhibitor. (3) Type 2 diabetes mellitus with complication Assessment & Plan: As above, I added SEAN inhibitor due to his diabetes. The hospitalist is managing the diabetes. OFELIA VILLANUEVA JR, MD Jan 06, 2021 11:46
--- NOTE | 2021-01-06 12:15 | Discharge Summary ---
Diagnosis/Chief Complaint Date of Admission Jan 02, 2021 at 04:30 Date of Discharge Discharge Date: Jan 06, 2021 Admission Diagnosis Acute hypoxic respiratory failure due to COVID19 NSTEMI Primary Care Unknown Discharge Diagnosis (1) NSTEMI (non-ST elevated myocardial infarction) (2) Essential (primary) hypertension (3) Type 2 diabetes mellitus with complication Discharge Summary Procedures/Consulations Cardiology Discharge Physical Exam Allergies: Coded Allergies: No Known Drug Allergies (Unverified , 01/02/21) Vitals & I&Os Vital Signs Date Time Temp Pulse Resp B/P (MAP) Pulse Ox O2 Delivery O2 Flow Rate FiO2 01/06/21 11:15 35.7 53 24 155/73 (100) 97 High Flow N/C 3.00 01/05/21 04:00 45 General Appearance: No Apparent Distress, WD/WN Respiratory: Lungs Clear, No Respiratory Distress Cardiovascular: Regular Rate, Rhythm, No Murmur Gastrointestinal: Normal Bowel Sounds, Non Tender, Soft Neurologic/Psychiatric: Alert, Oriented x3 Hospital Course Patient was admitted to the hospital due to NSTEMI and COVID-19 with acute hypoxic respiratory failure. His troponin stabilized and was deemed to be a type II TN. He did progress with his Covid to needing Vapotherm. At that time he was transitioned from remdesivir to Actemra. He was also treated with Decadron. He did well and was able to be titrated down after a few days. He was able to be discharged home in stable and improved condition with supplemental oxygen. He is to follow-up with his primary care doctor. He is to follow-up with Dr. Astorga for further cardiac work-up. Labs (last 24 hrs) Laboratory Tests 01/05/21 15:58: Glucometer 190H 01/05/21 20:16: Glucometer 227H 01/06/21 06:19: Glucometer 130H 01/06/21 06:20: Sodium Level 141, Potassium Level 3.7, Chloride Level 101, Carbon Dioxide Level 29, Anion Gap 11, Blood Urea Nitrogen 19H, Creatinine 0.72, Estimat Glomerular Filtration Rate 107, BUN/Creatinine Ratio 26, Glucose Level 136H, Calcium Level 8.3L, Corrected Calcium 9.2, Total Bilirubin 0.6, Aspartate Amino Transf (AST/SGOT) 64H, Alanine Aminotransferase (ALT/SGPT) 48, Alkaline Phosphatase 130, Total Protein 5.7L, Albumin 2.9L 01/06/21 11:15: Glucometer 107 Patient resulted labs reviewed. Pending Labs Laboratory Tests 01/06/21 06:19: Glucometer 130 01/06/21 06:20: Sodium Level 141, Potassium Level 3.7, Chloride Level 101, Carbon Dioxide Level 29, Anion Gap 11, Blood Urea Nitrogen 19, Creatinine 0.72, Estimat Glomerular Filtration Rate 107, BUN/Creatinine Ratio 26, Glucose Level 136, Calcium Level 8.3, Corrected Calcium 9.2, Total Bilirubin 0.6, Aspartate Amino Transf (AST/SGOT) 64, Alanine Aminotransferase (ALT/SGPT) 48, Alkaline Phosphatase 130, Total Protein 5.7, Albumin 2.9 01/06/21 11:15: Glucometer 107 Discussion & Recommendations Discharge Planning: >30 minutes discharge planning Discharge Home Medications: Active Scripts Active Children's Aspirin (Aspirin) 81 Mg Tab.chew 81 Mg PO DAILY Lisinopril 5 Mg Tablet 5 Mg PO DAILY Metoprolol Succinate 100 Mg Tab.er.24h 100 Mg PO BID Reported Vitamin C (Ascorbic Acid) 500 Mg Tablet 500 Mg PO DAILY Metoprolol Tartrate 100 Mg Tablet 100 Mg PO DAILY Glimepiride 4 Mg Tablet 4 Mg PO DAILY Instructions to patient/family Please see electronic discharge instructions given to patient. WILIAM AVELAR MD Jan 06, 2021 12:15
[2021-01-06 15:55] VITALS: BP 155/73
--- NOTE | 2021-01-07 15:41 | Physician Query Clarification ---
PQ-Conflicting Diagnosis Admission/Discharge Admission Date: Jan 02, 2021 at 04:30 Discharge Date: Jan 06, 2021 at 15:45 The medical record reflects the following clinical scenario: History/Risk Factors: Covid, respiratory failure Clinical Findings: Per chest xray "mild left perihilar pneumonia Treatment: Remdesivir, Albuterol, Decadron Question: Do you agree with the impression of the Covid related pneumonia per 01/04 Pulmonary progress note and radiology reports. Please document a response in Progress Note or Discharge Summary. 1. Yes 2. No 3. Other, with explanation of clinical findings 4. Clinically undetermined, no explanation for clinical findings. PHYSICIAN RESPONSE Do you agree w/Consulting Dx?: Yes Please remember a lack of response to the above will prompt a phone page by [facility]oding staff. In responding to this query, please exercise your independent professional judgment. The purpose of this communication is to more accurately reflect the complexity of your patients condition. The fact that a question is asked does not imply that any particular answer is desired or expected. Thank you for your timely response to this clarification. Requestors name: Lo THIS PHYSICIAN QUERY FORM IS A PERMANENT PART OF THE MEDICAL RECORD LO AGARWAL Jan 07, 2021 15:41 WILIAM AVELAR MD Jan 16, 2021 16:22
== END 2021-01-06 15:45 | disposition home or self-care (01) | DRG 177 ==
LOC: CSD 04:30 → 4TH 01-05 11:46
PROVIDERS: ADMIT Internal Medicine; ATTEND Internal Medicine
PROC: XW033E5 Introduction of Remdesivir Anti-infective into Peripheral Vein, Percutaneous Approach, New Technology Group 5 (ICD-10-PCS; principal; 2021-01-02)
DX: U07.1 COVID-19 (principal); J96.01 Acute respiratory failure with hypoxia; I21.A1 Myocardial infarction type 2; J12.82 Pneumonia due to coronavirus disease 2019; I10 Essential (primary) hypertension; E11.9 Type 2 diabetes mellitus without complications; Z79.84 Long term (current) use of oral hypoglycemic drugs; Z73.0 Burn-out; Z79.899 Other long term (current) drug therapy
CPT/HCPCS: 36415; 71045; 80053; 80061; 82805; 82947; 83036; 83880; 84145; 84443; 84484; 85025; 85027; 85379; 93005; 94640; 94664; 94760; 94761